=== PATIENT | female | born 1930 | race Caucasian/White ===

== ENCOUNTER → 2017-06-21 | Outpatient (CLI) | payer MEDICARE ==
--- NOTE | 2017-06-21 14:33 | XR ---
EXAMINATION TYPE: XR abdomen complete DATE OF EXAM: 06/21/2017 COMPARISON: NONE HISTORY: Abdominal pain, distention, history of Crohn's, history of ruptured bowel and hernia repair, and history of IBS. TECHNIQUE: Supine and upright views of the abdomen are obtained. FINDINGS: No dilated large or small bowel are seen. No differential air-fluid levels. Lung bases are unremarkab le. Numerous surgical coils are seen from mesh placement of prior hernia repair. Surgical fixation of the lumbosacral junction and posterior element resection is noted. Mild femoral acetabular arthropat hy is also seen. Linear oriented calcifications adjacent to the L3 vertebral body are thought to rela te to atherosclerosis rather than renal calcifications. IMPRESSION: Nonobstructive bowel gas pattern with postsurgical changes as described above.
== END | disposition home or self-care (01) ==
LOC: RADXRMAIN 12:24
PROVIDERS: ATTEND Family Medicine
DX: R10.84 Generalized abdominal pain (principal); Z98.890 Other specified postprocedural states
CPT/HCPCS: 74021

== ENCOUNTER → 2017-08-01 | Outpatient (CLI) | payer MEDICARE ==
--- NOTE | 2017-08-01 12:39 | CT ---
EXAMINATION TYPE: CT brain wo con DATE OF EXAM: 08/01/2017 COMPARISON: 12/30/2009 INDICATION: Patient complains of dizziness. DLP: 742.7 mGycm, Automated exposure control for dose reduction was used. CONTRAST: None CT of the brain is performed utilizing 3 mm thick sections through the posterior fossa and 3 mm thick sections through the remaining calvarium. Study is performed within 24 hours of arrival to the hosp [facility]. No abnormal hyperdensity is present to suggest an acute intracranial hemorrhage. No mass lesion is evident. Minimal physiologic basal ganglion calcifications present on the left. No acute infarcts are evident. Ventricles and sulci are prominent compatible for the patient age, unchanged from 2009. Paranasal sinuses and mastoid air cells within the [id number] are clear. IMPRESSIONS: 1. No acute intracranial process. Findings are stable from 2009.
--- NOTE | 2017-08-01 13:18 | US ---
EXAMINATION TYPE: US carotid duplex BILAT DATE OF EXAM: 08/01/2017 COMPARISON: NONE CLINICAL HISTORY: R55 syncope, R40.4 Transient alteration awareness. Dizziness for 2 months EXAM MEASUREMENTS: RIGHT: Peak Systolic Velocity (PSV) cm/sec ----- Right CCA: 83.4 ----- Right ICA: 125.8 ----- Right ECA: 99.5 ICA/CCA ratio: 1.5 RIGHT: End Diastole cm/sec ----- Right CCA: 9.8 ----- Right ICA: 24.1 ----- Right ECA: 8.9 LEFT: Peak Systolic Velocity (PSV) cm/sec ----- Left CCA: 88.5 ----- Left ICA: 70.2 ----- Left ECA: 107.3 ICA/CCA ratio: 0.8 LEFT: End Diastole cm/sec ----- Left CCA: 14.4 ----- Left ICA: 13.1 ----- Left ECA: 8.9 VERTEBRALS (direction of flow): Right Vertebral: abnormal Left Vertebral: Antegrade Rhythm: Normal Mild plaque bilateral bifurcations. No evidence of increased velocities. Abnormal waveform right vert ebral IMPRESSION: 1. Approximately 50% narrowing within the right internal carotid artery. 2. Waveforms within the right carotid system partial filling of the acoustic window. Criteria for Assigning % of Stenosis / Diameter reduction (Estimation based on the indirect measurements of the internal carotid artery velocities (ICA PSV). 1. Normal (no stenosis)=ICA PSV < 125 cm/s: ratio < 2.0: ICA EDV<40 cm/s. 2. Less than 50% stenosis=ICA PSV < 125 cm/s: ratio < 2.0: ICA EDV<40 cm/s. 3. 50 to 69% stenosis=ICA PSV of 125 to 230 cm/s: ration 2.0 ? 4.0: ICA EDV 40-100 cm/s. 4. Greater than 70% stenosis to near occlusion= ICA PSV > 230 cm/s: ratio > 4.0: ICA EDV > 100 cm/s. 5. Near occlusion= ICA PSV velocities may be low or undetectable: variable ratio and ICA EDV. 6. Total occlusion=unable to detect flow.
--- NOTE | 2017-08-01 17:11 | ECHOF ---
Referral Reason:R55 syncope, R40.4 Transient alteration awareness MEASUREMENTS -------- HEIGHT: 162.6 cm WEIGHT: 62.1 kg BP: 118/57 RVIDd: 3.1 cm (< 3.3) IVSd: 1.0 cm (0.6 - 1.1) LVIDd: 4.6 cm (3.9 - 5.3) LVPWd: 1.2 cm (0.6 - 1.1) IVSs: 1.5 cm LVIDs: 3.1 cm LVPWs: 1.7 cm LA Diam: 3.5 cm (2.7 - 3.8) LAESV Index (A-L): 32.27 ml/m Ao Diam: 3.2 cm (2.0 - 3.7) AV Cusp: 1.8 cm (1.5 - 2.6) MV EXCURSION: 14.967 mm (> 18.000) MV EF SLOPE: 57 mm/s (70 - 150) EPSS: 1.3 cm MV E Wes: 0.89 m/s MV DecT: 304 ms MV A Wes: 0.94 m/s MV E/A Ratio: 0.94 AR PHT: 652 ms RAP: 5.00 mmHg RVSP: 27.02 mmHg FINDINGS -------- Sinus rhythm. This was a technically adequate study. The left ventricular size is normal. There is borderline concentric left ventricular hypertrophy. Overall left ventricular systolic function is normal with, an EF between 55 - 60 %. The right ventricle is normal in size. LA is midly dilated 29-33ml/m2. The right atrium is normal in size. There is mild aortic valve sclerosis. There is [id number] aortic regurgitation. The mitral valve leaflets are mildly thickened. Mild mitral annular calcification present. There is trace mitral regurgitation. Mild tricuspid regurgitation present. Right ventricular systolic pressure is normal at < 35 mmHg. Trace/mild (physiologic) pulmonic regurgitation. The aortic root size is normal. Normal inferior vena cava with normal inspiratory collapse consistent with estimated right atrial pre ssure of 5 mmHg. There is no pericardial effusion. CONCLUSIONS -------- 1. Sinus rhythm. 2. This was a technically adequate study. 3. The left ventricular size is normal. 4. There is borderline concentric left ventricular hypertrophy. 5. Overall left ventricular systolic function is normal with, an EF between 55 - 60 %. 6. The right ventricle is normal in size. 7. LA is midly dilated 29-33ml/m2. 8. The right atrium is normal in size. 9. There is mild aortic valve sclerosis. 10. There is [id number] aortic regurgitation. 11. The mitral valve leaflets are mildly thickened. 12. Mild mitral annular calcification present. 13. There is trace mitral regurgitation. 14. Mild tricuspid regurgitation present. 15. Right ventricular systolic pressure is normal at < 35 mmHg. 16. Trace/mild (physiologic) pulmonic regurgitation. 17. The aortic root size is normal. 18. Normal inferior vena cava with normal inspiratory collapse consistent with estimated right atrial pressure of 5 mmHg. 19. There is no pericardial effusion. [employer]: Mindy Moore RDCS
== END | disposition home or self-care (01) ==
LOC: RADUSMAIN 11:52
PROVIDERS: ATTEND Family Medicine
DX: I65.21 Occlusion and stenosis of right carotid artery (principal); I08.8 Other rheumatic multiple valve diseases; R40.4 Transient alteration of awareness; Z88.8 Allergy status to other drugs, medicaments and biological substances
CPT/HCPCS: 70450; 93306; 93880

== ENCOUNTER → 2018-04-30 | Outpatient (CLI) | payer MEDICARE ==
--- NOTE | 2018-04-30 22:49 | CT ---
EXAMINATION TYPE: CT abdomen pelvis w con DATE OF EXAM: 04/30/2018 COMPARISON: 10/21/2013 HISTORY: 87-year-old female with bowel obstruction, Abdominal pain TECHNIQUE: Contiguous axial scanning of the abdomen and pelvis following administration of 100 ml Iso akua 300 IV contrast. Delayed images through the kidneys and coronal/sagittal reconstructions perform ed. CT DLP: 443.7 mGycm Automated exposure control for dose reduction was used. FINDINGS: Heart normal size without pericardial effusion. There appears to be mild diffuse anasarca type change with edema in the intra-abdominal fat and stran dy density throughout the subcutaneous fat. Lung bases clear without pleural effusion. No focal liver lesion seen. Mild prominence of the bile duct at 1 cm but with normal distal tapering. No distal obstructive lesion is seen. This can be correlated with alkaline phosphatase and bilirubin levels. Portal venous system is patent. Gallbladder, adrenal glands, left kidney, spleen with hilar splenule, and pancreas show no gross abno rmality. Benign 2.2 cm cyst posterior right kidney. A vague 1.1 cm area of hypodensity laterally in the mid ri ght kidney, axial image 30 on the delayed kidney images could represent a subtle underlying lesion an d follow-up is recommended. Noted dilated small bowel, free fluid, or free air. Prior ventral abdominal wall mesh repair. Moderate stool burden though the sigmoid colon and rectum is relatively collapsed. No pericolonic inf lammatory change. Moderate atherosclerotic calcifications within the infrarenal abdominal aorta and artery ectatic righ t common iliac artery and 1.6 cm, coronal image 45. Bladder partially distended. Uterus surgically absent. Multiple pelvic phleboliths. No abnormal fluid collection in the pelvis or pelvic lymphadenopathy. Neither ovary is clearly seen. Bones: Degenerative changes at the hips. Postsurgical changes of L4-S1 posterior fusion and correspon ding laminectomies. Possible significant spinal canal stenosis above the fusion at L3-L4. Grade 1 ret rolisthesis at L2-L3 also with narrowing of the spinal canal at that level. IMPRESSION: 1. NO SPECIFIC FINDINGS OF BOWEL OBSTRUCTION. 2. MODERATE SOLID STOOL THROUGHOUT THE COLON EXCEPT FOR THE SIGMOID COLON AND RECTUM. CORRELATE FOR P OSSIBLE CONSTIPATION. 3. MILD DIFFUSE ANASARCA TYPE CHANGE. 4. BILE DUCT IS DILATED AT 1 CM. NO DISTAL OBSTRUCTING LESION IS SEEN. THIS MAY BE NORMAL IN THIS PAT IENT. CORRELATE FOR NORMAL ALKALINE PHOSPHATASE AND BILIRUBIN LEVELS. 5. A VAGUE 1.1 CM AREA OF HYPODENSITY LATERAL MID RIGHT KIDNEY ONLY SEEN ON THE DELAYED KIDNEY IMAGES COULD REPRESENT A SUBTLE UNDERLYING MASS. 6 MONTH FOLLOW-UP CONTRAST ENHANCED CT IS RECOMMENDED TO R EASSESS AND EXCLUDE THE POSSIBILITY OF AN EARLY RCC. 6. EXTENSIVE DEGENERATIVE CHANGES WITHIN THE LUMBAR SPINE MENTIONED ABOVE.
== END | disposition home or self-care (01) ==
LOC: RADCTMAIN 14:08
PROVIDERS: ATTEND Surgery Plastic and Reconstructive Surgery
DX: K83.8 Other specified diseases of biliary tract (principal); R60.1 Generalized edema; R93.421 Abnormal radiologic findings on diagnostic imaging of right kidney; Z88.8 Allergy status to other drugs, medicaments and biological substances
CPT/HCPCS: 82565; 84520; 74177; 36415; Q9967